=== PATIENT | female | born 1980 | race Caucasian/White ===

== ENCOUNTER 2017-12-03 09:29 | Emergency (ER) | payer MEDICAID ==
[2017-12-03] MEDS: KETOROLAC 30 MG INJ IM (10:17)
== END 2017-12-03 10:53 | disposition home or self-care (01) ==
LOC: FTE 10:53
DX: L84 Corns and callosities (principal)
CPT/HCPCS: 81025; 96372; 99284-25

== ENCOUNTER 2017-12-04 15:36 | Emergency (ER) | payer MEDICAID ==
[2017-12-04] MEDS ORDERED: TRIMETHOPRIM/SULFAMETHOX (DS) TAB PO ×2 (16:00)
[2017-12-04] MEDS: IBUPROFEN 800 MG TAB PO (16:26)
[2017-12-04] MEDS: TRIMETHOPRIM/SULFAMETHOX (DS) TAB PO (16:26)
[2017-12-04] MEDS: CEFTRIAXONE 1 GM INJ IM (16:27)
[2017-12-04] MEDS: LIDOCAINE 1% (MDV) 10 ML INJ INFIL (16:30)
== END 2017-12-04 18:05 | disposition home or self-care (01) ==
LOC: FTE 15:36
DX: L03.116 Cellulitis of left lower limb (principal)
CPT/HCPCS: 73630; 73630-LT; 96372; 99284-25

== ENCOUNTER 2018-11-19 23:30 | Emergency (ER) | payer MEDICAID ==
[2018-11-20] MEDS: KETOROLAC 30 MG INJ IM (02:11)
[2018-11-20] MEDS: HYDROCODONE/APAP (5/325) TAB PO (02:24)
== END 2018-11-20 05:35 | disposition home or self-care (01) ==
LOC: FTE 23:30
DX: S99.912A Unspecified injury of left ankle, initial encounter (principal); M77.9 Enthesopathy, unspecified; W07.XXXA Fall from chair, initial encounter; Y92.9 Unspecified place or not applicable
CPT/HCPCS: 73590; 73610; 73630-LT; 99283-25